=== PATIENT | male | born 1975 | race Caucasian/White ===

== ENCOUNTER 2024-10-14 17:01 | Emergency (ER) | payer BC, OTHER ==
[2024-10-14 17:10] VITALS: BP 119/73; PULSE 86; RESP 20; TEMP 98; BMI 29.2
[2024-10-14] MEDS ORDERED: LIDOCAINE 4% PATCH TP ONE (18:37)
[2024-10-14] MEDS ORDERED: KETOROLAC TROMETHAMINE 30 MG/1 ML VIAL ONE (18:37)
[2024-10-14] MEDS ORDERED: METHOCARBAMOL 500 MG TABLET ONE (18:38)
[2024-10-14] MEDS: KETOROLAC TROMETHAMINE 30 MG/1 ML VIAL IM ONE (18:43)
[2024-10-14] MEDS: METHOCARBAMOL 500 MG TABLET PO ONE (18:43)
[2024-10-14] MEDS: LIDOCAINE 5% TOPICAL PATCH TP ONE (18:43)
[2024-10-15] MEDS ORDERED: LIDOCAINE PATCH REMOVAL MC SCH (06:00)
== END 2024-10-14 19:28 | disposition home or self-care (01) ==
LOC: JERFT 17:01
PROC: 3E0233Z Introduction of Anti-inflammatory into Muscle, Percutaneous Approach (ICD-10-PCS; principal; 2024-10-14)
DX: M54.2 Cervicalgia (principal)
CPT/HCPCS: 82962; 99284-25